=== PATIENT | female | born 1950 | race African-American/Black ===

== ENCOUNTER 2018-11-17 10:04 | Outpatient (CLI) | payer OTHER ==
[~2018-11-17 10:04] MED LIST: AMLODIPINE BESYL5 MG; CEFUROXIME500 MG PO; CLONIDINE HCL0.1 MG; ENALAPRIL MALEA10 MG; LEVOTHROID50 MCG PO; LIPITOR20 MG; METFORMIN HCL500 MG; METFORMIN HCL500 MG PO; NORVASC5 MG PO; SYNTHROID50 MCG; URIN D.S. TABLE1 TAB PO; VERAPAMIL ER180 MG; ZOCOR20 MG PO
== END 2018-11-17 10:09 | disposition home or self-care (01) ==
LOC: NUCLEAR 10:04
DX: M85.80 Other specified disorders of bone density and structure, unspecified site (principal); M81.0 Age-related osteoporosis without current pathological fracture

== ENCOUNTER 2019-03-07 20:41 | Emergency (ER) | payer OTHER ==
[~2019-03-07] VITALS: Ht 149.9 cm; Wt 59.4 kg
[2019-03-07] MEDS ORDERED: CLEARLAX (21:55)
== END 2019-03-08 02:23 | disposition home or self-care (01) ==
LOC: ER 20:41
DX: K29.60 Other gastritis without bleeding (principal)

== ENCOUNTER 2019-11-16 10:44 | Outpatient (CLI) | payer OTHER ==
[~2019-11-16 10:44] MED LIST changes: +CLEARLAX
== END 2019-11-16 10:48 | disposition home or self-care (01) ==
LOC: SONOGRAMA 10:44 → MAMO-SONO 11:15
PROVIDERS: ATTEND General Practice
DX: M25.512 Pain in left shoulder (principal); M62.412 Contracture of muscle, left shoulder

== ENCOUNTER 2020-08-31 07:53 | Outpatient (CLI) | payer OTHER | END 2020-08-31 07:59 | disposition home or self-care (01) | LOC: LAB 07:53 → T RESPIRAT 07:53 | PROVIDERS: ATTEND Internal Medicine Hematology & Oncology | DX: D75.1 Secondary polycythemia (principal); R09.02 Hypoxemia ==

== ENCOUNTER 2020-10-12 13:38 | Emergency (ER) | payer OTHER ==
[~2020-10-12] VITALS: Ht 149.9 cm; Wt 55.8 kg
== END 2020-10-12 18:41 | disposition home or self-care (01) ==
LOC: ER 13:38
DX: G44.89 Other headache syndrome (principal)

== ENCOUNTER 2022-09-25 10:01 | Outpatient (CLI) | payer OTHER | END 2022-09-25 10:05 | disposition home or self-care (01) | LOC: RAD 10:01 | PROVIDERS: ATTEND Ophthalmology | DX: Z98.41 Cataract extraction status, right eye (principal); H25.011 Cortical age-related cataract, right eye ==

== ENCOUNTER 2022-10-09 11:13 | Outpatient (CLI) | payer OTHER | END 2022-10-09 11:20 | disposition home or self-care (01) | LOC: EKG 11:13 → LAB 11:13 → EKG 11:20 | PROVIDERS: ATTEND Ophthalmology | DX: I11.9 Hypertensive heart disease without heart failure (principal) ==

== ENCOUNTER 2022-12-03 08:25 | Outpatient (CLI) | payer OTHER | END 2022-12-03 08:28 | disposition home or self-care (01) | LOC: EKG 08:25 | PROVIDERS: ATTEND Ophthalmology | DX: I11.9 Hypertensive heart disease without heart failure (principal) ==